=== PATIENT | male | born 1970 | race Caucasian/White ===

== ENCOUNTER 2019-09-27 18:07 | Emergency (ER) | payer OTHER ==
[~2019-09-27] VITALS: Ht 175.2 cm; Wt 81.7 kg
[2019-09-27 18:07] VITALS: BP 126/75
[~2019-09-27 18:07] MED LIST: ACETAMINOPHEN325 M1 PO; FLAGYL500 M1 PO; LEVAQUIN 500 M500 M2 PO; LEVSIN0.125 MG PO; MIRALAX17 GM PO; NORCO 10-325 T1 EACH PO; PEPCID20 MG PO
== END 2019-09-27 18:24 | disposition left against medical advice (07) ==
LOC: M.ERS 18:07
DX: Z53.21 Procedure and treatment not carried out due to patient leaving prior to being seen by health care provider (principal)

== ENCOUNTER 2021-04-14 13:00 | Emergency (ER) | payer OTHER ==
[~2021-04-14] VITALS: Ht 180.3 cm; Wt 71.2 kg
[2021-04-14 13:10] VITALS: BP 141/88
[2021-04-14] MEDS ORDERED: HYDROCODON-ACE1 EAC7 PO (13:13)
[2021-04-14] MEDS ORDERED: [UNRECOGNIZED DRUG - REMARK] (13:13)
[2021-04-14 14:05] LABS: ABSOLUTE EOSINOPHILS 0.2 thou/uL (0.0-0.7); ABSOLUTE LYMPHOCYTES 2.2 thou/uL (0.8-5.3); ABSOLUTE MONOCYTES 0.6 thou/uL (0.0-1.2); ABSOLUTE NEUTROPHILS 5.3 thou/uL (1.6-8.1); BASOPHILS 0.4 %; EOSINOPHILS 1.9 %; HEMATOCRIT 42.1 % (42.0-52.0); HEMOGLOBIN 14.7 gm/dL (14.0-18.0); LYMPHOCYTES 26.3 %; MCH 32.9 pg (26.0-34.0); MCHC 34.8 g/dL (28.0-37.0); MCV 94.3 fL (80.0-100.0); MONOCYTES 7.7 %; MPV 8.3 fl. (7.2-11.1); NUCLEATED RBCS 0 /100WBC; PLATELET COUNT* 210 thou/uL (150-400); POLYS 63.7 %; RBC 4.46 mil/uL (4.50-6.00); RDW-CV 12.9 % (10.5-14.5); WBC 8.3 thou/uL (4.0-11.0)
[2021-04-14 14:18] LABS: ALBUMIN 3.8 g/dL (3.4-5.0); CALCIUM 9.2 mg/dL (8.5-10.1); CREATININE 0.9 mg/dL (0.6-1.3); TOTAL BILIRUBIN 0.3 mg/dL (<0.1-1.0); TOTAL PROTEIN 6.8 g/dL (6.4-8.2)
[2021-04-14 14:24] LABS: POTASSIUM 3.8 mmol/L (3.5-5.1)
== END 2021-04-14 15:49 | disposition home or self-care (01) ==
LOC: M.ERS 13:00
PROVIDERS: Family Medicine
DX: G43.909 Migraine, unspecified, not intractable, without status migrainosus (principal); F17.210 Nicotine dependence, cigarettes, uncomplicated; Z79.899 Other long term (current) drug therapy; Z88.6 Allergy status to analgesic agent